=== PATIENT | male | born 1970 | race Caucasian/White ===

== ENCOUNTER 2017-02-25 10:43 | Outpatient (CLI) ==
[2017-02-25 11:04] LABS: BASOPHILS # (AUTO) 0.1 K/uL (0-0.2); BASOPHILS % (AUTO) 0.8 % (0.0-3.0); EOSINOPHILS # (AUTO) 0.2 K/ul (0.0-0.7); EOSINOPHILS % (AUTO) 2.8 % (0.0-7.0); HEMATOCRIT 48.1 % (42.0-52.0); HEMOGLOBIN 16.4 g/dl (14.0-18.0); IMMATURE GRANULOCYTE % (AUTO) 0.7 % (0.0-5.0); LYMPHOCYTES # (AUTO) 4.4 K/uL (0.60-3.4); LYMPHOCYTES % (AUTO) 52.8 (10.0-50.0); MEAN CORPUSCULAR HEMOGLOBIN 29.4 pg (27.0-31.0); MEAN CORPUSCULAR HGB CONC 34.1 (31.8-35.4); MEAN CORPUSCULAR VOLUME 86.2 fl (80.0-94.0); MONOCYTES # (AUTO) 0.5 K/uL (0.4-2.0); MONOCYTES % (AUTO) 6.4 (0-10); NEUTROPHILS % (AUTO) 36.5; PLATELET COUNT 303 10^3/uL (140-440); RED BLOOD COUNT 5.58 10^6/ul (4.70-6.10); WHITE BLOOD COUNT 8.27 K/ul (4.2-10.2)
[2017-02-25 11:27] LABS: ALBUMIN 3.7 g/dL (3.4-5.0); ALBUMIN/GLOBULIN RATIO 1.12; ANION GAP 12.1; BILIRUBIN,TOTAL 0.57 mg/dL (0.00-1.20); POTASSIUM 4.1 mmol/L (3.5-5.1)
--- NOTE | 2017-02-25 11:30 | DI ---
Exam: Four views left knee. linical indication: Left knee pain. Findings: There is no left knee effusion. There is evidence of prior anterior cruciate ligament repair, with out radiographic evidence of hard cade complication. The there is mild osteoarthritic changes within the right lateral femoral compartment. There is audrey e dystrophic calcifications within the patellar ligament. Otherwise, there are no fractures, disloc ations or other significant bony abnormalities. Impression: 1. Mild left lateral femoral compartment osteoarthritis. 2. Evidence of prior anterior cruciate ligament repair. 3. Dystrophic calcifications within the left patellar tendon.
== END 2017-02-25 10:44 | disposition home or self-care (01) ==
LOC: RAD 10:43
PROVIDERS: ATTEND Internal Medicine
DX: R53.83 Other fatigue (principal); I10 Essential (primary) hypertension; T14.8 Other injury of unspecified body region; W57.XXXA Bitten or stung by nonvenomous insect and other nonvenomous arthropods, initial encounter
CPT/HCPCS: 36415; 80053; 85025; 86757; 87798